=== PATIENT | male | born 1940 | race Caucasian/White ===

== ENCOUNTER 2016-10-03 13:34 | Outpatient (CLI) | payer MEDICARE ==
[2016-10-03 14:38] LABS: ALT (SGPT) 19 U/L (0-55); AST (SGOT) 22 U/L (5-34); Alkaline Phosphatase 70 U/L (40-150); Anion Gap 15 mmol/L (10-20); BUN (Urea Nitrogen) 15 mg/dL (8.4-25.7); Bilirubin, Total 0.5 mg/dL (0.2-1.2); Calc. Creatinine Clearance 0 mL/min (70-130); Calcium 9.9 mg/dL (7.8-10.44); Carbon Dioxide 26 mmol/L (23-31); Chloride 98 mmol/L (98-107); Estimated GFR-MDRD 43; Globulin 2.5 g/dL (2.4-3.5); Protein, Total 6.6 g/dL (5.8-8.1)
== END 2016-10-03 13:35 | disposition home or self-care (01) ==
LOC: HPCALD 13:34
PROVIDERS: ATTEND Family Medicine
DX: N18.3 Chronic kidney disease, stage 3 (moderate) (principal); E87.1 Hypo-osmolality and hyponatremia
CPT/HCPCS: 36415; 80053

== ENCOUNTER 2016-11-28 13:07 | Emergency (ER) | payer MEDICARE ==
[2016-11-28] MEDS ORDERED: HYDROcodone/Acetaminophen 5/325 mg Tablet ONE (16:28)
[2016-11-28] MEDS ORDERED: Cephalexin 250 MG CAP ONE (16:28)
--- NOTE | 2016-11-28 17:34 | RAD ---
RIGHT GREAT TOE 11/28/16 Total of four views are submitted. There is a comminuted fracture of the distal phalanx with minimal displacement of fragments. The IP joint appears intact. There is nearly complete loss of the first metatarsophalangeal joint with osteophytes and bony sclerosis indicating resulting degenerative bojorquez ge. There may have been old trauma here. The other toes appeared intact. Arterial calcifications are evident. IMPRESSION: 1. Comminuted fracture at the distal phalanx of the great toe. 2. 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 POS: HOME
== END 2016-11-28 16:40 | disposition home or self-care (01) ==
LOC: BURERS 13:07
DX: S92.421A Displaced fracture of distal phalanx of right great toe, initial encounter for closed fracture (principal); I25.10 Atherosclerotic heart disease of native coronary artery without angina pectoris; I25.2 Old myocardial infarction; I10 Essential (primary) hypertension; E78.5 Hyperlipidemia, unspecified; Z79.82 Long term (current) use of aspirin; Z79.01 Long term (current) use of anticoagulants; Z79.899 Other long term (current) drug therapy; W19.XXXA Unspecified fall, initial encounter
CPT/HCPCS: 11760; 90471

== ENCOUNTER 2023-01-19 17:48 | Outpatient (CLI) | payer MEDICARE | END 2023-01-19 17:49 | disposition home or self-care (01) | LOC: BURRAD 17:48 | PROVIDERS: ATTEND Family Medicine | DX: M54.9 Dorsalgia, unspecified (principal); M47.816 Spondylosis without myelopathy or radiculopathy, lumbar region; M51.35 Other intervertebral disc degeneration, thoracolumbar region; M51.36 Other intervertebral disc degeneration, lumbar region; Z98.890 Other specified postprocedural states | CPT/HCPCS: 72110 ==